=== PATIENT | female | born 1965 | race Asian ===

== ENCOUNTER 2019-04-21 01:23 | Emergency (ER) | payer MEDICAID ==
[~2019-04-21] VITALS: Ht 162.6 cm; Wt 61.2 kg
[2019-04-21 01:37] VITALS: Ht 162.6 cm; Wt 61.2 kg
[2019-04-21 02:39] LABS: BASOPHIL % 0.7 % (0-2); PLATELET COUNT 199 x10^3mcL (130-400)
[2019-04-21 02:40] LABS: RED CELL DISTRIBUTION WIDTH 19.5 % (11.5-14.5)
[2019-04-21 02:49] LABS: CALCIUM 8.7 mg/dL (8.5-10.1); CARBON DIOXIDE 29.7 mmol/L (21-32); CHLORIDE SERUM 99 mmol/L (98-107); CREATININE SERUM 0.6 mg/dL (0.6-1.0); GFR1 > 60 mL/min; GLUCOSE SERUM 120 mg/dL (74-106); POTASSIUM SERUM 3.1 mmol/L (3.5-5.1); SODIUM SERUM 139 mmol/L (136-145)
[2019-04-21 02:54] LABS: ALBUMIN 3.4 g/dL (3.4-5.0); ALKALINE PHOSPHATASE 154 U/L (46-116); ALT/SGPT 140 U/L (14-59); AST/SGOT 295 U/L (15-37); BILIRUBIN TOTAL 1.37 mg/dL (0.20-1.00); LIPASE 128 IU/L (73-393)
[2019-04-21 05:57] VITALS: BP 164/97
== END 2019-04-21 05:37 | disposition short-term general hospital (02) ==
LOC: ED 01:23
PROVIDERS: Emergency Medicine
DX: I62.9 Nontraumatic intracranial hemorrhage, unspecified (principal); I16.1 Hypertensive emergency
CPT/HCPCS: J0360; J3490; Q0092